=== PATIENT | female | born 1990 | race Caucasian/White ===

== ENCOUNTER 2018-08-13 16:46 | Emergency (ER) | payer OTHER ==
[~2018-08-13] VITALS: Ht 160 cm; Wt 77.2 kg
[2018-08-13 16:51] VITALS: BP 136/86; PULSE 103; RESP 18; Ht 160 cm; Wt 77.2 kg
[2018-08-13] MEDS ORDERED: TRAM50TA2 PO (17:15)
--- NOTE | 2018-08-13 17:24 | ERD ---
ER Documentation Chief Complaint Chief Complaint RUQ PAIN AND N/V X YESTERDAY. HPI 28-year-old female with a history of gallstones with colic presenting after having an episode of vomiting blood earlier this morning. After that she has had intermittent episodes of vomiting which is associated with the right upper q uadrant pain that she gets from her gallstones. However she has not had any blood or black-colored vomit since the first episode. She denies any melena or hematochezia. No epigastric pain. Her only pain is in the right upper quadrant, but currently she is not having any pain. Denies any dizziness, chest pain, shortness of breath. She has been taking tramadol and meloxicam for her pain. ROS All systems reviewed and are negative except as per history of present illness. Medications Home Meds Active Scripts Tramadol HCl (Tramadol HCl) 50 Mg Tablet, 50 MG PO Q6 PRN for PAIN, #20 TAB Prov:ALBARO TRAN MD 08/13/18 Allergies Allergies: Coded Allergies: No Known Allergies (Verified Allergy, Unknown, 08/13/18) PMhx/Soc History of Surgery: No Anesthesia Reaction: No Hx Neurological Disorder: No Hx Respiratory Disorders: No Hx Cardiac Disorders: No Hx Psychiatric Problems: No Hx Miscellaneous Medical Probl: Yes (GALLSTONES) Hx Alcohol Use: No Hx Substance Use: No Hx Tobacco Use: No Smoking Status: Never smoker FmHx Family History: No diabetes Physical Exam Vitals Vital Signs Date Temp Pulse Resp B/P (MAP) Pulse Ox O2 O2 Flow FiO2 Time Delivery Rate 08/13/18 98.1 103 18 136/86 100 16:51 (103) Physical Exam Const: No acute distress Head: Atraumatic Eyes: Normal Conjunctiva ENT: Normal External Ears, Nose and Mouth. Neck: Full range of motion. No meningismus. Resp: Clear to auscultation bilaterally Cardio: Regular rate and rhythm, no murmurs Abd: Soft, non tender, non distended. No rebound or guarding. Negative Arroyo sign. No McBurney's point tenderness. Normal bowel sounds Skin: No petechiae or rashes Back: No midline or flank tenderness Ext: No cyanosis, or edema Neur: Awake and alert Psych: Normal Mood and Affect Procedures/MDM Initial Nursing notes reviewed. Previous Medical Records requested via the Electronic Health Record. EMERGENCY DEPARTMENT COURSE / MEDICAL DECISION MAKING: Patient is presenting with intermittent right upper quadrant pain secondary to biliary colic with one episode of hematemesis that worried her today. However this is the first time this is happened and she has had no other symptoms of GI bleed. Currently she is feeling well. I did offer to do some labs but the patient feels that she is fine and does not want any work-up done. She just wanted reassured him it. I reassured her that this is most likely a Gabrilea- Booker tear from her vomiting. I recommended avoiding all NSAIDs and taking only tramadol for pain control. Declined antiemetics. Return precautions discussed. Patient's blood pressure was elevated (>120/80) but appears stable without evidence of hypertensive emergency or urgency. The patient was counseled about the risks of hypertension and urged to pursue outpatient monitoring and therapy within a week with their primary care physician. Departure Diagnosis: Primary Impression: Recurrent biliary colic Additional Impression: Hematemesis Nausea presence: without nausea Qualified Codes: K92.0 - Hematemesis Condition: Stable Patient Instructions: Biliary Colic With Gallstone (Confirmed), Gi Bleed, Upper (Stable) [facility] Usted se stewart hecho un examen mdico de control que le indica que no est en david condicin que requiera tratamiento urgente en el Departamento de Emergencia. Un estudio ms profundo y el tratamiento de schaffer condicin pueden esperar sin ningn riesgo hasta que usted sea atendida/o en el consultorio de schaffer mdico o david cln ica. Es responsabilidad suya arreglar david kenn para el seguimiento del serena. MANEJO DE CONDICIONES NO URGENTES EN EL FUTURO 1) Si usted tiene un mdico de atencin primaria: Usted debera llamar a schaffer mdico de atencin primaria antes de venir al departa mento de emergencia. Despus de las horas de consultorio, schaffer doctor o schaffer asociado/a est disponible por telfono. El mdico o enfermero de chino en el servicio telefnico puede asesorarle por steve medio para atender el problema, o serena contrario se puede programar david kenn. 2) Si usted no tiene un mdico de atencin primaria: Llame al mdico o clnica de referencia que aparece abajo imelda las horas de consultorio para hacer david kenn para que le vean. CLINICAS: [facility] [phone] [facility] [phone] [facility] [phone] [facility] [phone] [place] [id number] [phone] [facility]. [phone] [address] Additional Instructions: Return to the ER if you are having any worsening symptoms or has continuous bloody vomiting. Avoid meloxicam, naproxen, Aleve, Advil, and aspirin. ALBARO TRAN MD August 13, 2018 17:24
== END 2018-08-13 17:46 | disposition home or self-care (01) ==
LOC: FTE 16:46
DX: K80.20 Calculus of gallbladder without cholecystitis without obstruction (principal); K92.0 Hematemesis
CPT/HCPCS: 99283

== ENCOUNTER 2018-08-28 09:49 | Day surgery (SDC) | payer OTHER ==
[2018-08-28] VITALS (12 sets, daily range): BP systolic 112–140; BP diastolic 62–94; PULSE 16–84; RESP 16–22
[~2018-08-28 09:49] MED LIST: TRAM50TA2 PO
[2018-08-28] MEDS ORDERED: CEFAZOLIN 2 GM/50 ML (PMX) 50 ML IVPB ONE (10:00)
[2018-08-28] MEDS ORDERED: SOD CHLORIDE 0.9% 1,000 ML IV SCH (10:00)
--- NOTE | 2018-08-28 12:35 | PREAC ---
Date/Time of Note Date/Time of Note DATE: 08/28/18 TIME: 12:34 Anesthesia Eval and Record Evaluation Time Pre-Procedure Interview DATE: 08/28/18 TIME: 12:34 Age 28 Sex female NPO: 8 hrs Preoperative diagnosis CHOLELITHIASIS Planned procedure LAPAROSCOPIC CHOLECYSTECTOMY Past Medical History Past Medical History: None Surgery & Anesthesia Issues No known issue Meds Anticoagulation: No Beta Amber within 24 hr: No Reason Beta Amber not given: Pt. not on B-Amber Discontinued Scripts Tramadol HCl (Tramadol HCl) 50 Mg Tablet, 50 MG PO Q6 PRN for PAIN, #20 TAB Prov:ALBARO TRAN MD 08/13/18 Current Medications Sodium Chloride 1,000 ml @ 75 mls/hr [id number] IV Last administered on 08/28/18at 11:01; Admin Dose 75 MLS/HR; Start 08/28/18 at 10:00; Stop 08/28/18 at 23:19 Meds reviewed: Yes Allergies Coded Allergies: No Known Allergies (Verified Allergy, Unknown, 08/28/18) Allergies Reviewed: Yes Labs/Studies Labs Reviewed: Reviewed by anesthesiologist test: Negative Pre-procedure Exam Last vitals Vital Signs Date Temp Pulse Resp B/P (MAP) Pulse Ox O2 O2 Flow FiO2 Time Delivery Rate 08/28/18 98.0 16 16 112/77 100 11:17 (89) Airway: Adequate mouth opening, Adequate thyromental dist Mallampati: Mallampati II Teeth: Normal Lung: Normal Heart: Normal ASA Physical Status ASA physical status: 1 Emergency: None Planned Anesthetic General/MAC: ETT Planned Pain Management Parenteral pain med Pre-operative Attestations Prior to commencing anesthesia and surgery, the patient was re-evaluated, there was verification of: *The patient's identity *The results of appropriate recent lab work and preoperative vital signs *The above evaluation not changing prior to induction *Anesthetic plan, risk benefits, alternative and complications discussed with patient/family; questions answered; patient/family understands, accepts and wishes to proceed. SOLOMON CARDONA Aug 28, 2018 12:35
[2018-08-28] MEDS ORDERED: PROPOFOL 100 ML ONE (12:48)
[2018-08-28] MEDS ORDERED: LIDOCAINE 2% (SDV) 5 ML INJ ONE (12:48)
[2018-08-28] MEDS ORDERED: ROCURONIUM 50 MG INJ ONE (12:48)
[2018-08-28] MEDS ORDERED: BUPIVACAINE 0.25%/EPI (SDV) 30 ML INJ ONE (13:00)
[2018-08-28] MEDS ORDERED: DEXAMETHASONE 4 MG/ML 5 ML INJ ONE (13:06)
[2018-08-28] MEDS ORDERED: ONDANSETRON 4 MG INJ ONE (13:06)
[2018-08-28] MEDS ORDERED: BUPIVACAINE 0.5% (SDV) 30 ML INJ ONE (13:49)
--- NOTE | 2018-08-28 13:58 | OPR ---
Date/Time of Note Date/Time of Note DATE: 08/28/18 TIME: 13:53 Operative Report Procedure Date: Aug 28, 2018 Preoperative Diagnosis Cholelithiasis/chronic cholecystitis Postoperative Diagnosis Cholelithiasis/chronic cholecystitis Operation/Procedure Performed Laparoscopic cholecystectomy Surgeon see signature line Final Assembly Worker Drew Henry MD Anesthesia Type: general Anesthesiologist: SOLOMON CARDONA Estimated Blood Loss: minimal Transfusion none Specimen Gallbladder Grafts/Implants none Complications none Pt Condition Post Procedure: stable Disposition: PACU Indications The patient is a 28-year-old female who presented to the office with a history of right upper quadrant and epigastric abdominal pain. The patient had clinical signs and symptoms of biliary colic and chronic cholecystitis which was confirmed via an ultrasound which showed the presence of biliary sludge and gallstones without evidence of acute cholecystitis. The patient was scheduled for laparoscopic cholecystectomy; possible open as definitive treatment to prevent further sequelae of gallstone disease which include but are not limited to: Gangrenous cholecystitis, choledocholithiasis, gallstone pancreatitis, ascending cholangitis, etc. All risks and benefits of the procedure including but not limited to: Wound infection, excessive bleeding, common bile duct injury, postoperative biliary leak, retained common bile duct stone, injury to intra-abdominal organs, conversion to open procedure, possible need for subsequent surgeries, etc. were all explained to the patient in full detail. She fully understood and wished to proceed with the procedure. Informed consent was therefore obtained. Procedure Description The patient was brought to the operating room and placed supine on the operating table. Bilateral sequential compression devices were placed on both lower extremities. A dose of broad-spectrum perioperative intravenous antibiotics was given. After the induction of smooth general endotracheal anesthesia the patient 's abdomen was prepped and draped in the standard surgical fashion. After performance of the surgical timeout a 5 mm incision was made in the inferior umbilicus and a Veress needle was used to access the intra-abdominal cavity atraumatically. Pneumoperitoneum was then obtained and the Veress needle was exchanged for a 5 mm trocar through which a 5 mm laparoscope was placed. Three f urther working ports were then placed a 12 mm port in the sub-xiphoid region and two 5 mm ports in the right upper quadrant. All port sites were anesthetized with 0.25% Marcaine with epinephrine prior to incision. Using atraumatic graspers the gallbladder was grasped and retracted superiorly and laterally exposing the area of Raman's pouch. Dissection was begun in this area using a combination of blunt dissection and hook electrocautery. The cystic duct was identified as it entered straight into the neck of the gallbladder. It was dissected free of surrounding tissues and clipped proximally and distally x 3 and transected using EndoShears. Dissection was then continued posteriorly. A short cystic artery was identified and dissected free of surrounding tissues. It too was clipped proximally x 1 and transected using the hook electrocautery. The gallbladder was then dissected off the liver bed using electrocautery. There was dense fibrosis of the gallbladder to the liver bed. The posterior portion of the gallbladder was intrahepatic. During dissection a small defect was made in the gallbladder with minimal drainage of bile which was suctioned out with a pool sucker. Once completely free the gallbladder was placed in an Endo Catch bag and withdrawn through the subxiphoid port site and passed off the field as specimen. Hemostasis was then inspected for and obtained on the liver bed using hook electrocautery. The abdomen was then irrigated with several liters of warm normal saline and the irrigant returned crystal clear. The fascia of the subxiphoid port site was then reapproximated using a batsheva-close device. Pneumoperitoneum was then released and all remaining trochars were withdrawn under direct vision. The subcutaneous tissues were irrigated with more warm normal saline. The skin was then reapproximated using 4-0 Monocryl sutures in subcuticular fashion. The incisions were cleaned and Dermabond was applied to the incisions and the patient was awoken from anesthesia and transported to the recovery room in stable condition. A tap block was performed at the conclusion of the case by the anesthesiologist and will be documented by him separately. All counts were correct at the end of the case x 2. ANGEL OJEDA MD Aug 28, 2018 13:58
[2018-08-28] MEDS ORDERED: ONDANSETRON 4 MG INJ IV PRN (14:00)
[2018-08-28] MEDS ORDERED: IBUPROFEN 600 MG TAB PO PRN (14:00)
[2018-08-28] MEDS ORDERED: KETOROLAC 30 MG INJ IV PRN (14:00)
[2018-08-28] MEDS ORDERED: HYDROCODONE/APAP (5/325) TAB PO PRN ×2 (14:00)
[2018-08-28] MEDS ORDERED: morphine 4 MG/ML VIAL IV PRN (14:00)
--- NOTE | 2018-08-28 14:21 | PAC ---
Date/Time of Note Date/Time of Note DATE: 08/28/18 TIME: 14:21 Post-Anesthesia Notes Post-Anesthesia Note Last documented vital signs Vital Signs Date Temp Pulse Resp B/P (MAP) Pulse Ox O2 O2 Flow FiO2 Time Delivery Rate 08/28/18 98.0 78 15 117/67 99 14:21 08/28/18 16 16 112/77 100 11:17 (89) Activity: WNL Respiratory function: WNL Cardiovascular function: WNL Mental status: Baseline Pain reasonably controlled: Yes Hydration appropriate: Yes Nausea/Vomiting absent: Yes SOLOMON CARDONA Aug 28, 2018 14:21
== END 2018-08-28 15:41 | disposition home or self-care (01) ==
LOC: SDS 09:49
PROVIDERS: ATTEND Surgery
DX: K80.10 Calculus of gallbladder with chronic cholecystitis without obstruction (principal)
CPT/HCPCS: 47562; 84703; 88304; J0690; J1100; J1885; J2405; J3010; Z7512; Z7610

== ENCOUNTER 2018-09-01 14:53 | Emergency (ER) | payer OTHER ==
[~2018-09-01] VITALS: Ht 157.5 cm; Wt 75.9 kg
[2018-09-01 14:58] VITALS: BP 169/96; PULSE 99; RESP 16; Ht 157.5 cm; Wt 75.9 kg
[2018-09-01] MEDS ORDERED: PRED20TA PO (15:12)
--- NOTE | 2018-09-01 15:15 | ERD ---
ER Documentation Chief Complaint Chief Complaint SORE THROAT WITH BURNING PAIN X 2 DAYS HPI 28-year-old female presents with sore throat for last 2 days. She recently had a cholecystectomy 3 days ago. She denies fevers. She also has pain in her bilateral ears. ROS All systems reviewed and are negative except as per history of present illness. Medications Home Meds Active Scripts Prednisone* (Prednisone*) 20 Mg Tab, 40 MG PO DAILY for 3 Days, TAB Start September 02, 2018 Prov:MATTIE VYAS MD 09/01/18 Discontinued Scripts Tramadol HCl (Tramadol HCl) 50 Mg Tablet, 50 MG PO Q6 PRN for PAIN, #20 TAB Prov:ALBARO TRAN MD 08/13/18 Allergies Allergies: Coded Allergies: No Known Allergies (Verified Allergy, Unknown, 08/28/18) PMhx/Soc History of Surgery: No (FIRST SURGERY) Hx Neurological Disorder: No Hx Respiratory Disorders: No Hx Cardiac Disorders: No Hx Psychiatric Problems: No Hx Miscellaneous Medical Probl: No Hx Alcohol Use: Yes (OCC) Hx Substance Use: No Hx Tobacco Use: No FmHx Family History: No diabetes, No coronary disease, No other Physical Exam Vitals Vital Signs Date Temp Pulse Resp B/P (MAP) Pulse Ox O2 O2 Flow FiO2 Time Delivery Rate 09/01/18 99.6 99 16 169/96 97 14:58 (120) Physical Exam Const: No acute distress Head: Atraumatic Eyes: Normal Conjunctiva ENT: Normal External Ears, Nose and Mouth. There is a approximately 0.5 cm aphthous ulcer on the tip of the uvula. Uvula is midline. Airway is patent. No erythema and tonsils are normal size. Neck: Full range of motion. No meningismus. Resp: Clear to auscultation bilaterally Cardio: Regular rate and rhythm, no murmurs Abd: Soft, non tender, non distended. Normal bowel sounds Skin: No petechiae or rashes Back: No midline or flank tenderness Ext: No cyanosis, or edema Neur: Awake and alert Psych: Normal Mood and Affect Procedures/MDM Patient presents with what appears to be a sore throat from a aphthous ulcer on her uvula. May be due to her intubation or procedure 3 days ago. There is no signs of airway obstruction, bacterial infection. She will be treated with a short course of prednisone, continuation of pain is skin infection at home, retu rn precautions and primary care follow-up. Patient was encouraged to drink clear fluids, and follow-up as directed. Departure Diagnosis: Primary Impression: Sore throat Condition: Stable Patient Instructions: Aphthous Ulcer Referrals: [facility] (PCP) Additional Instructions: Ulcer should heal over the next few days. Drink plenty fluids at home. Recheck for new or worsening symptoms with primary care doctor. MATTIE VYAS MD Sep 01, 2018 15:15
[2018-09-01] MEDS ORDERED: predniSONE 20 MG TAB PO ONE (15:30)
== END 2018-09-01 15:32 | disposition home or self-care (01) ==
LOC: FTE 14:53
DX: J02.9 Acute pharyngitis, unspecified (principal)
CPT/HCPCS: J7512; Z7502; 99283